=== PATIENT | female | born 1975 | race Caucasian/White ===

== ENCOUNTER 2022-06-02 10:07 | Emergency (ER) | payer OTHER, SELFPAY ==
--- NOTE | 2022-06-02 10:08 | NURSING ---
NO OLD EKGS
[2022-06-02 10:09] VITALS: BP 158/93; PULSE 88; RESP 16; TEMP 35.7; O2SAT 100; BMI 28.8
--- NOTE | 2022-06-02 10:20 | EKG12_ITS ---
Test Reason : CP Blood Pressure : / mmHG Vent. Rate : 073 BPM Atrial Rate : 073 BPM P-R Int : 150 ms QRS Dur : 088 ms QT Int : 396 ms P-R-T Axes : 067 064 059 degrees QTc Int : 436 ms Normal sinus rhythm with sinus arrhythmia Normal ECG Confirmed by JULIEN AG, EMILIANO ([id number]), clinical editor ORTIZ ALFONSO ([id number]) on 06/05/2022 7:54:32 AM Referred By: JARROD/TABITHA Confirmed By:EMILIANO VICTORIA MD
--- NOTE | 2022-06-02 10:21 | EX.ED.DYSGE1 ---
HPI History of Present Illness Chief Complaint: Palpitations Informant: patient Onset/Context/Timing Onset: Yesterday Timing: Intermittent Current Severity: Mild Maximum Severity: Severe Narrative Narrative: Patient presents with intermittent episodes of palpitations. She states last evening she was sitting on the couch with a family member talking when she developed sudden onset of heart racing and shortness of breath. She reports having numbness and tingling in both of her arms. Symptoms resolved after approximately 20 minutes. She woke up early this morning with a similar episode. She states this morning she does not feel quite right but not able to put her finger on it. She does have a history of hypothyroidism and states as of mid April her numbers were appropriate. [facility] Medical History Hypothyroid Kidney calculi Home Medications levothyroxine 175 mcg capsule 175 mcg PO DAILY #30 caps 06/02/22 [Rx Last Taken Unknown] Allergy/AdvReac Type Severity Reaction Status Date / Time tamsulosin [From Flomax] AdvReac PT UNSURE Verified 06/02/22 10:08 OF REACTION Social History Smoking Status: Current every day smoker tobacco type: cigarettes ROS ROS ED Constitutional Constitutional ED: Denies chills or fever(s) Eyes Eyes: Denies change in vision or discharge from eye(s) ENT ENT ED: Denies discharge from eye(s), rhinorrhea or sore throat Cardiovascular Cardiovascular: Reports chest pain, palpitations and racing heartbeat Respiratory/Chest Respiratory/Chest: Reports dyspnea; Denies cough Gastrointestinal Gastrointestinal: Reports nausea; Denies abdominal pain, diarrhea or vomiting Genitourinary Genitourinary ED: Denies difficulty urinating or dysuria Musculoskeletal Musculoskeletal: Denies back pain or extremity pain Integumentary Denies Abrasions or rash Neurologic Neurologic: Reports paresthesias; Denies headache(s) or weakness Psychiatric Psychiatric: Denies anxiety or depression Endocrine Endocrinology: Denies polydipsia or polyuria Allergic/Immunologic Allergic/Immunologic ED: Denies lip swelling or urticaria EXAM Physical Exam Const Vital Signs: 06/02/22 10:09 06/02/22 10:11 Temperature 96.2 F L Temperature Source Temporal Pulse Rate 88 Respiratory Rate 16 Respiratory Effort Normal Non-Labored Blood Pressure 158/93 H Blood Pressure Mean 114 Pulse Ox 100 Oxygen Delivery Method Room Air Positive well nourished and well developed General Appearance ED: well developed HEENT Reports normocephalic and head/scalp atraumatic Eyes PERRL and EOMs intact bilaterally Neck supple Chest Wall inspection of chest normal and palpation of chest normal Resp normal respiratory effort and clear to auscultation bilaterally Cardio regular rate and regular rhythm GI normal to inspection, nondistended, normoactive bowel sounds Palpation: soft Back/Spine no CVA tenderness Extremity normal to inspection Neuro oriented x3 and no sensory deficits noted Sensorium / Orientation: alert Motor Exam: strength 5/5 throughout Psych mental status grossly normal Skin no rashes or lesions noted MDM MDM MDM Narrative Medical decision making narrative: Chest x-ray and EKG obtained. Lab work ordered and patient given a liter of IV fluids. Lab Data Attestation: I reviewed the patient's lab results. Labs: Laboratory Results - last 24 hr 06/02/22 06/02/22 06/02/22 10:20 10:20 10:20 WBC 10.5 RBC 5.23 Hgb 15.4 H Hct 46.1 MCV 88.1 MCH 29.4 MCHC 33.4 RDW Std Deviation 42.2 RDW Coeff of Michele 13.0 Plt Count 284 MPV 11.0 Immature Gran % (Auto) 0.300 Neut % (Auto) 60.7 Lymph % (Auto) 29.9 [place] % (Auto) 6.5 Eos % (Auto) 1.7 Baso % (Auto) 0.9 Absolute Neuts (auto) 6.4 Absolute Lymphs (auto) 3.15 Nucleated RBC % 0 D-Dimer Quant (PE/DVT) 0.40 Sodium 139 Potassium 3.7 Chloride 108 H Carbon Dioxide 22.0 Anion Gap 9 BUN 9 Creatinine 0.99 Estim Creat Clear Calc 59.99 Est GFR (MDRD) Af Amer 78 Est GFR (MDRD) Non-Af 64 BUN/Creatinine Ratio 9.1 L Glucose 87 Calcium 9.6 Total Bilirubin 0.70 Direct Bilirubin 0.19 AST 13 L ALT 16 Alkaline Phosphatase 75 Troponin I High Sens 4 Total Protein 8.1 Albumin 4.1 Globulin 4.0 TSH 14.20 H Radiography Chest X-Ray - ED: 1 View, Read by ED Physician, Normal, Heart, Lungs and Mediastinum Diagnostic Testing: Clinical Impression(s) from Imaging Studies Chest X-Ray 06/02/22 10:25 IMPRESSION: Normal x-ray examination of the chest. Electronically Signed: Tammy Barbosa MD at 10:38 EDT , EKG Initial EKG: Attestation: I personally reviewed and interpreted this EKG as follows: Interpretation: Sinus Rhythm (Sinus at 73 with no acute ischemia.) Treatment and Re-Evaluation Narrative: Repeat evaluation patient resting comfortably. Heart rate in the 60s. Lab work is reviewed. CBC reveals mildly concentrated hemoglobin of 15.4. Chemistry studies unremarkable. D-dimer is normal at 0.4 and troponin is normal at 4. Her TSH is elevated at 14.2. It appears that the patient is currently on 125 mcg of Synthroid. In January she was on 175, tapered to 150 in February, and tapered to 125 in March. I spoke with the patient's primary care physician, Dr. Aviles. Patient will go back up to 175 and I will write her a new prescription for that. She is to follow-up in 1 month for repeat labs. Discharge Plan Triage Chief Complaint: Palpitations ED Provider: Ana Muñoz Dx/Rx/DC Orders Clinical Impression: Palpitations, Hypothyroidism Instructions: Treating Thyroid Problems, ED Palpitations Prescriptions: New levothyroxine 175 mcg capsule 175 mcg PO DAILY Qty: 30 0RF Primary Care Provider: Hakeem Aviles Referrals: Hakeem Aviles MD [Primary Care Provider] - 1-2 Weeks Activity Restrictions/Additional Instructions: Follow-up with Dr. Aviles in 1 month for repeat thyroid testing. If you continue to have intermittent palpitations you need to be seen for reevaluation prior to this. Disposition Disposition: Home, Self Care
--- NOTE | 2022-06-02 10:25 | RAD_ITS ---
STUDY: X-RAY CHEST REASON FOR EXAM: Female, 46 years old. Cp TECHNIQUE: Single AP portable view of the chest. COMPARISON: None. FINDINGS: The lungs are clear and expanded. There is no demonstrated pleural abnormality. Normal size heart. Normal mediastinum and rachel. Normal visualized pulmonary arteries. Normal visualized aortic arch and descending thoracic aorta. Normal visualized thoracic spine. Normal visualized ribs, clavicles, and shoulders. There is no demonstrated abnormality of the visualized soft tissue structures of the upper abdomen. RAD/Chest 1 View (Portable) IMPRESSION: Normal x-ray examination of the chest. Electronically Signed: Tammy Barbosa MD at 10:38 EDT Reading Location ID and State: [facility] / [place] Tel , Service support ,
[2022-06-02 10:32] LABS: Absolute Lymphocyte Count 3.15 X10^3/uL (0.83-4.51); Absolute Neutrophil Count 6.4 X10^3/uL (2.0-7.7); Basophil# 0.09 X10^3/uL; Basophil% 0.9 % (0-1); Eosinophil# 0.18 X10^3/uL; Eosinophils% 1.7 % (0-5); Hematocrit 46.1 % (37-47); Hemoglobin 15.4 g/dL (12.0-15.0); Lymphocyte # 3.15 X10^3/ul (0.83-4.51); Lymphocyte % 29.9 % (19-41); Mean Corp Hgb Conc 33.4 g/dL (32-36); Mean Corpuscular Hgb 29.4 pg (27.0-32.0); Mean Corpuscular Volume 88.1 fL (81-99); Monocyte# 0.68 X10^3/uL; Monocyte% 6.5 % (0-10); NRBC Flagged by Analyzer 0 % (0-5); Neutrophil % 60.7 % (47-70); Platelet Count 284 K/mm3 (150-450); RBC Distribution Width SD 42.2 fl (35.1-43.9); Red Blood Count 5.23 M/mm3 (4.2-5.4); White Blood Count 10.5 K/mm3 (4.4-11.0)
[2022-06-02] MEDS: 0.9% Normal Saline 1,000 ML 1000 ML IV (10:44)
[2022-06-02 10:56] LABS: AST(SGOT) 13 U/L (15-37); Alanine Aminotransfer ALT/SGPT 16 U/L (13-56); Albumin, Serum 4.1 g/dL (3.2-5.0); Alkaline Phosphatase 75 U/L (45-117); Anion Gap 9 (5-15); BUN 9 mg/dL (7-18); BUN/Creat Ratio 9.1 RATIO (10-20); Bilirubin, Direct 0.19 mg/dL (0.00-0.30); Calcium,Total 9.6 mg/dL (8.5-10.1); Chloride 108 mmol/L (98-107); Creatinine, Serum 0.99 mg/dL (0.55-1.02); EST Glomerular Filtration Rate 64 mL/min (>60); Est Glom Filt Rate - Afr Amer 78 mL/min (>60); Estimated Creatinine Clearance 59.99 ml/min; Glucose 87 mg/dL (74-106); Potassium 3.7 mmol/L (3.5-5.1); Protein, Total 8.1 g/dL (6.4-8.2); Sodium Level 139 mmol/L (136-145); Troponin-I HS (w/2H Reflex) 4 pg/mL (3.0-54.0)
[2022-06-02 11:22] VITALS: BP 128/94; PULSE 87; RESP 14; TEMP 37.1; O2SAT 99
[2022-06-02 12:28] LABS: Reflex Troponin-HS? (from REC) Y
== END 2022-06-02 11:23 | disposition home or self-care (01) ==
PROVIDERS: Emergency Provider Emergency Medicine; PCP Family Medicine; Visit Provider Emergency Medicine
DX: R00.2 Palpitations (principal); E03.9 Hypothyroidism, unspecified; R06.02 Shortness of breath; F17.210 Nicotine dependence, cigarettes, uncomplicated; Z79.890 Hormone replacement therapy
CPT/HCPCS: 71045; 80048; 80076; 84443; 84484; 85025; 85379; 93005; 96360; 99284; J7030

== ENCOUNTER → 2022-07-20 | Outpatient (CLI) | payer OTHER, SELFPAY ==
--- NOTE | 2022-07-20 12:12 | US_ITS ---
STUDY: THYROID ULTRASOUND REASON FOR EXAM: Female, 46 years old. HYPOTHYROID TECHNIQUE: Ultrasound evaluation of the thyroid was performed with real-time and static ellsworth-scale imaging. COMPARISON: None. FINDINGS: RIGHT LOBE: The right lobe of the thyroid gland measures 4.4 x 1.1 x 1.0 cm. There is a heterogeneous echotexture. 2 separate solid nodules identified. Larger measures 1.1 x 0.7 x 0.7 cm. This nodule is solid or almost completely solid, hypoechoic, cfarhk-bdsq-coen, smoothly marginated and contains no echogenic foci. TI-RADS points: 7. TI-RADS category: TR5. This nodule is highly suspicious. Recommend follow-up thyroid ultrasounds annually for 5 years. Smaller 0.5 x 0.4 x 0.3 cm. LEFT LOBE: The left lobe of the thyroid gland measures 3.8 x 1.1 x 0.7 cm. There is a heterogeneous echotexture. There is a solid 0.2 x 0.2 x 0.1 cm hypoechoic nodule ISTHMUS: The isthmus measures 2 mm. The regional lymph nodes are normal. US/Thyroid IMPRESSION: Heterogeneous thyroid gland with bilateral solid nodules. Largest nodule in is the right lobe measures 1.1 x 0.7 x 0.7 cm. Follow-up as described above. Electronically Signed: Huy Pearson MD at 9:23 EDT ,
== END | disposition home or self-care (01) ==
PROVIDERS: PCP Family Medicine; Visit Provider Internal Medicine Endocrinology, Diabetes & Metabolism
DX: E04.0 Nontoxic diffuse goiter (principal); E03.9 Hypothyroidism, unspecified; E55.9 Vitamin D deficiency, unspecified
CPT/HCPCS: 76536

== ENCOUNTER 2023-05-16 13:06 | Emergency (ER) | payer OTHER, SELFPAY ==
[2023-05-16 13:07] VITALS: BP 144/85; PULSE 67; RESP 14; TEMP 36.2; O2SAT 100; BMI 29.5
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
[2023-05-16 13:49] LABS: Absolute Lymphocyte Count 3.31 X10^3/uL (0.83-4.51); Absolute Neutrophil Count 4.4 X10^3/uL (2.0-7.7); Basophil# 0.07 X10^3/uL; Basophil% 0.8 % (0-1); Eosinophil# 0.13 X10^3/uL; Eosinophils% 1.5 % (0-5); Hematocrit 41.6 % (37-47); Hemoglobin 13.8 g/dL (12.0-15.0); Lymphocyte # 3.31 X10^3/ul (0.83-4.51); Lymphocyte % 38.6 % (19-41); Mean Corp Hgb Conc 33.2 g/dL (32-36); Mean Corpuscular Hgb 29.2 pg (27.0-32.0); Mean Corpuscular Volume 88.1 fL (81-99); Mean Platelet Vol. 9.9 fl (6.2-12.0); Monocyte# 0.61 X10^3/uL; Monocyte% 7.1 % (0-10); NRBC Flagged by Analyzer 0 % (0-5); Neutrophil # 4.44 X10^3/uL (2.7-7.7); Neutrophil % 51.8 % (47-70); Platelet Count 294 K/mm3 (150-450); RBC Distribution Width CV 12.3 % (11.6-14.6); Red Blood Count 4.72 M/mm3 (4.2-5.4); White Blood Count 8.6 K/mm3 (4.4-11.0)
--- NOTE | 2023-05-16 13:50 | RAD_ITS ---
STUDY: X-RAY CHEST REASON FOR EXAM: Female, 47 years old. Chest pain TECHNIQUE: PA and lateral views of the chest. COMPARISON: Comparison is made with prior study June 02, 2022. FINDINGS: EKG electrodes are seen. Hyperinflation. The lungs are clear. There is no demonstrated pleural abnormality. Normal size heart. Normal mediastinum and rachel. Normal visualized pulmonary arteries. Normal visualized aortic arch and descending thoracic aorta. Normal visualized thoracic spine. Normal visualized ribs, clavicles, and shoulders. There is no demonstrated abnormality of the visualized soft tissue structures of the upper abdomen. RAD/Chest PA and Lateral IMPRESSION: Hyperinflation. The lungs are clear. Electronically Signed: Rio Castellon MD at 14:05 EDT ,
[2023-05-16 14:10] LABS: Anion Gap 9 (5-15); BUN 15 mg/dL (7-18); BUN/Creat Ratio 13.4 RATIO (10-20); Calcium,Total 9.2 mg/dL (8.5-10.1); Chloride 108 mmol/L (98-107); Creatinine, Serum 1.12 mg/dL (0.55-1.02); EST Glomerular Filtration Rate 56 mL/min (>60); Est Glom Filt Rate - Afr Amer 67 mL/min (>60); Estimated Creatinine Clearance 52.47 ml/min; Free T3 1.8 pg/mL (2.18-3.98); Glucose 83 mg/dL (74-106); Sodium Level 139 mmol/L (136-145); T4 Free Direct 1.18 ng/dL (0.76-1.46); Troponin-I HS 4 pg/mL (3.0-54.0)
[2023-05-16 15:38] VITALS: BP 136/78; PULSE 78; RESP 14; O2SAT 98
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
== END 2023-05-16 15:54 | disposition home or self-care (01) ==
PROVIDERS: Emergency Provider Emergency Medicine; PCP Family Medicine; Visit Provider Emergency Medicine
DX: E03.9 Hypothyroidism, unspecified (principal); R07.9 Chest pain, unspecified; R00.2 Palpitations; R06.02 Shortness of breath; M54.2 Cervicalgia; R51.9 Headache, unspecified; F17.210 Nicotine dependence, cigarettes, uncomplicated; Z79.890 Hormone replacement therapy
CPT/HCPCS: 71046; 80048; 84439; 84443; 84481; 84484; 85025; 93005; 99284

== ENCOUNTER 2023-07-02 11:38 | Emergency (ER) | payer OTHER, SELFPAY ==
[2023-07-02 11:40] VITALS: BP 146/84; PULSE 75; RESP 18; TEMP 36.1; O2SAT 100; BMI 28.7
--- NOTE | 2023-07-02 12:24 | CT_ITS ---
STUDY: CT SOFT TISSUE NECK WITH CONTRAST REASON FOR EXAM: Female, 47 years old. Swelling of the throat.. Patient is on prednisone. RADIATION DOSAGE (If Supplied By Facility): CTDIvol = ( 12.18 ) mGy, DLP = ( 380.41 ) mGycm TECHNIQUE: The patient was scanned in a multi-detector CT scanner. High resolution transaxial imaging was performed following intravenous administration of IV 100mL Isovue-300. Sagittal and coronal images were reconstructed. Individualized dose optimization techniques were used for this CT. COMPARISON: None. FINDINGS: Slightly limited study due to patient motion artifact. Normal bilateral parotid glands. Normal bilateral conductor/engineer spaces. Normal bilateral parapharyngeal spaces. Normal bilateral carotid spaces. Normal bilateral sublingual and submandibular glands and spaces. Normal visualized nasopharynx. Normal retropharyngeal space. Normal perivertebral space. Normal visualized bilateral faucial tonsils. The visualized tongue, tongue base and oropharynx are normal. The visualized cervical lymph nodes (levels I-) are within normal size limits, and maintain normal morphology. There is no demonstrated solid or cystic mass lesion. There is no abnormal contrast enhancement. Normal epiglottis, bilateral vallecula and hypopharynx. The pre-epiglottic and paraglottic adipose spaces are normal. Normal visualized bilateral piriform sinuses, aryepiglottic folds, vocal cords, and arytenoid-cricoid articulations. Normal subglottic trachea. Normal bilateral lobes of the thyroid gland. Normal visualized pulmonary apices. There is opacification of the left maxillary sinus. Normal visualized cervical spine. CT/Soft Tissue Neck WITH Contrast IMPRESSION: Opacification of the left maxillary sinus. Electronically Signed: Rio Castellon MD at 14:33 EDT ,
--- NOTE | 2023-07-02 12:27 | EX.ED.DYSGE1 ---
HPI <MERVIN Bryan - Last Filed: 07/02/23 15:15> History of Present Illness Chief Complaint: Sore Throat Narrative Narrative: Patient is a 47-year-old female with history of thyroid issues who is currently under the care of an physician general practice. Patient over the last several days has been having swelling to her lower part of her neck, she is having difficulty talking, she is having difficulty swallowing and she is here for evaluation. She did get seen by an emergency department 2 days ago, they did a chest x-ray, EKG and then discharged her. Patient does have an appointment on which is in 2 days. She is here because she thinks the swelling is getting worse and she is having difficulty breathing at nighttime. She does have history of thyroid nodules, and she is currently talking to her physician general practice about thyroidectomy. She has no history of cancer that she knows of. PFSH <MERVIN Bryan - Last Filed: 07/02/23 15:15> PFSH Medical History Hypothyroid Kidney calculi Home Medications levothyroxine 175 mcg capsule 100 mcg PO DAILY 05/16/23 [History Last Taken Unknown] Allergy/AdvReac Type Severity Reaction Status Date / Time bee venom protein (honey bee) Allergy Severe Anaphylaxis Verified 07/02/23 11:40 shellfish derived AdvReac Intermediate Vomiting Verified 07/02/23 11:40 tamsulosin [From Flomax] AdvReac PT UNSURE Verified 07/02/23 11:40 OF REACTION Social History Smoking Status: Current every day smoker tobacco type: cigarettes ROS <MERVIN Bryan - Last Filed: 07/02/23 15:15> ROS ED ROS Narrative Constitutional: Negative for fever, chills, weight loss, weakness Eyes: Negative for vision loss, vision change, double vision ENT: Negative for any ear pain, congestion. Positive for sore throat, difficulty swallowing, Cardiovascular: Negative for any chest pain, tightness, palpitations Respiratory: Negative for any cough, sputum production, hemoptysis, dyspnea on exertion, orthopnea. Positive for dyspnea secondary to throat swelling Gastrointestinal: Negative for any abdominal pain, nausea, vomiting, diarrhea, constipation, blood in stool, blood in vomit : Negative for any urinary frequency, dysuria, retention, blood in urine Muscle skeletal: Negative for any muscle joint pain, stiffness, myalgias, arthralgias, neck pain, back pain Neurological: Negative for any headache, syncope, numbness or tingling, dizziness Skin: Negative for any rashes, lumps, itching, abrasions, lacerations Psychiatric: Negative for any depression, anxiety, stress, suicidal ideation, homicidal ideation Hematologic: Negative for any easy bruising, excessive bruising, easy bleeding Allergies: Negative for any eczema, hives, rash EXAM <MERVIN Bryan - Last Filed: 07/02/23 15:15> Physical Exam Narrative Exam Narrative: Vital signs reviewed. Patient is in no obvious distress. Patient is to be complete sentences, patient has no stridor, patient's vital signs are stable. Patient does state that her voice is strained secondary to the pressure in her throat. HEET: Head normocephalic atraumatic, TMs clear bilaterally. Posterior pharynx is clear, moist mucous membranes. Nares clear bilaterally. Neck: Supple with no lymphadenopathy or tenderness. No signs of meningismus,. I was able to palpate the thyroid, when doing so, she states that this does cause significant pressure. I did not feel any nodules on my exam. Cardiac: Regular rate and rhythm no murmurs gallops or rubs, equal peripheral pulses bilaterally. Respiratory: Lungs clear to auscultation bilaterally. No chest tenderness. Abdomen: Soft, nontender, nondistended. No abdominal bruit or pulsatile masses. No hepatosplenomegaly Extremities: No peripheral edema, no signs of gross trauma or deformity. Active full range of motion of all extremities. Neuro: Cranial nerves II through XII intact, no focal neurological deficits. Skin: Clean dry and intact with no rash, purpura, petechiae, vesicles or pustules. Backs/flank: No CVA tenderness, no midline spinal tenderness, no deformity. Psych: Normal mood and affect. No SI, HI or acute psychosis. Const Vital Signs: 07/02/23 11:40 Temperature 97 F L Temperature Source Temporal Pulse Rate 75 Respiratory Rate 18 Blood Pressure 146/84 H Blood Pressure Mean 104 Pulse Ox 100 Oxygen Delivery Method Room Air Positive well nourished and well developed General Appearance ED: well developed <Dr. Efren Mckay, DO - Last Filed: 07/02/23 15:42> Physical Exam Const Vital Signs: 07/02/23 11:40 Temperature 97 F L Temperature Source Temporal Pulse Rate 75 Respiratory Rate 18 Blood Pressure 146/84 H Blood Pressure Mean 104 Pulse Ox 100 Oxygen Delivery Method Room Air MDM <Ren Ruizvalentina B[employer]WER-C - Last Filed: 07/02/23 15:15> MDM Lab Data Labs: Laboratory Results - last 24 hr 07/02/23 13:15 WBC 15.2 H RBC 4.59 Hgb 13.7 Hct 41.8 MCV 91.1 MCH 29.8 MCHC 32.8 RDW Std Deviation 41.8 RDW Coeff of Michele 12.5 Plt Count 271 MPV 10.3 Immature Gran % (Auto) 0.300 Neut % (Auto) 89.9 H Lymph % (Auto) 7.5 L Davison % (Auto) 2.0 Eos % (Auto) 0.0 Baso % (Auto) 0.3 Absolute Neuts (auto) 13.7 H Absolute Lymphs (auto) 1.14 Nucleated RBC % 0 Sodium 140 Potassium 4.1 Chloride 110 H Carbon Dioxide 24.0 Anion Gap 6 BUN 13 Creatinine 0.77 Estim Creat Clear Calc 76.32 Est GFR (MDRD) Af Amer 104 Est GFR (MDRD) Non-Af 86 BUN/Creatinine Ratio 16.9 Glucose 108 H Calcium 9.2 Radiography Diagnostic Testing: Clinical Impression(s) from Imaging Studies Soft Tissue Neck CT 07/02/23 12:24 IMPRESSION: Opacification of the left maxillary sinus. Electronically Signed: Rio Castellon MD at 14:33 EDT , Treatment and Re-Evaluation :: Patient is in no obvious distress, vital signs are stable. Patient appears nontoxic, patient is here for evaluation of her thyroid. Patient states that she feels like her thyroid is swelling, and is pushing on her throat causing her to have difficulty swallowing, breathing. She does have an appointment in 2 days. Patient will receive basic laboratory values, as well as a CT scan of the soft tissue neck. This will be concerning any obstructing pathology. This will also look for any tumors, size of the thyroid. Patient is in no distress, vital signs are stable. I did look at the patient's iPhone which had her past blood work, patient CBC was unremarkable, BMP was unremarkable, patient's thyroid was 0.67 which is normal. Patient's laboratory values showed elevated white blood count of 15.2, this is likely secondary to steroids. Patient's chemistries were unremarkable. Patient CT scan of the soft tissue neck concerning for any edema, abscess formation, swelling shows opacification of the left maxillary sinus. Normal bilateral lobes of the thyroid gland. Normal visualized pulmonary opacities. I spoke with the patient, she does feel similar however she is happy with the plan of care and going home and getting follow-up with her physician general practice. Again patient is in no distress, patient is stable for discharge. Patient instructed to return for any worsening symptoms, patient verbally understands the importance of following up with her physician general practice in 2 days. <Dr. Efren Mckay, DO - Last Filed: 07/02/23 15:42> [facility] Narrative Medical decision making narrative: I have personally performed a face to face assessment of the patient and have reviewed the JUAN CARLOS Note. I performed a substantive portion of the visit including all aspects of the following. My rapp findings include: History: Presents with sore throat and neck pain that has been getting worse over the past 3 days. Patient states her pain is over her thyroid gland area. Patient states she started herself on prednisone recently. Patient admits to a mild headache. Patient states her pain is worse with swallowing. Patient denies any shortness of breath. Patient denies any fevers or chills. Exam: Vital signs are stable. Patient is afebrile. Patient is in no acute distress. Oral mucosa is pink and moist. Oropharynx is clear. Airway is patent. There is no trismus noted. Neck is supple. Trachea is midline. There is no JVD. There is no anterior cervical lymphadenopathy noted. There are some mild tenderness anteriorly in the neck. There is no edema. There is no sublingual edema or erythema. There is no evidence of Richy's angina. Heart was regular rate and rhythm. Lungs are clear and equal bilaterally. Abdomen is soft and nontender. Cranial nerves II through XII are intact. There are no focal motor or sensory deficits noted. Medical Decision Making: Differential diagnosis includes parapharyngeal abscess, pharyngitis, epiglottitis, and tracheitis. CBC will be obtained to assess for leukocytosis and anemia. Basic metabolic profile will be obtained to assess for renal function and electrolyte abnormality. CT scan of the soft tissue neck will be obtained to assess for abscess, epiglottitis, and tracheitis. CBC was reviewed. There is a mild leukocytosis of 15.2. Platelets were normal. Basic metabolic profile was reviewed and was within normal limits. CT scan of the soft tissue neck was obtained. There is opacification of the left maxillary sinus. There is no pharyngeal abscess, epiglottitis, or tracheitis noted. This was interpreted by the radiologist and was also independently reviewed by myself. Patient was advised of her findings. Patient was instructed to follow-up with her primary care physician in 5 to 7 days. Patient understood and was agreeable with the plan. All questions were answered. Lab Data Labs: Laboratory Results - last 24 hr 07/02/23 13:15 WBC 15.2 H RBC 4.59 Hgb 13.7 Hct 41.8 MCV 91.1 MCH 29.8 MCHC 32.8 RDW Std Deviation 41.8 RDW Coeff of Michele 12.5 Plt Count 271 MPV 10.3 Immature Gran % (Auto) 0.300 Neut % (Auto) 89.9 H Lymph % (Auto) 7.5 L Davison % (Auto) 2.0 Eos % (Auto) 0.0 Baso % (Auto) 0.3 Absolute Neuts (auto) 13.7 H Absolute Lymphs (auto) 1.14 Nucleated RBC % 0 Sodium 140 Potassium 4.1 Chloride 110 H Carbon Dioxide 24.0 Anion Gap 6 BUN 13 Creatinine 0.77 Estim Creat Clear Calc 76.32 Est GFR (MDRD) Af Amer 104 Est GFR (MDRD) Non-Af 86 BUN/Creatinine Ratio 16.9 Glucose 108 H Calcium 9.2 Radiography Diagnostic Testing: Clinical Impression(s) from Imaging Studies Soft Tissue Neck CT 07/02/23 12:24 IMPRESSION: Opacification of the left maxillary sinus. Electronically Signed: Rio Castellon MD at 14:33 EDT , Discharge Plan Triage Chief Complaint: Sore Throat ED Midlevel Provider: Ren Ambriz ED Provider: Efren Mckay Dx/Rx/DC Orders Clinical Impression: Pain in throat, Hypothyroidism Prescriptions: No Action levothyroxine 175 mcg capsule 100 mcg PO DAILY Primary Care Provider: Hakeem Aviles Referrals: Hakeem Aviles MD [Primary Care Provider] - Activity Restrictions/Additional Instructions: Please follow-up with your physician general practice. Disposition Disposition: Home, Self Care Discharge Date/Time: 07/02/23 15:31
[2023-07-02] MEDS: 0.9% Normal Saline (1000mL) 1,000 ML 1000 ML IV (13:13)
[2023-07-02] MEDS: Ketorolac 15 MG/ML Vial IV (13:14)
[2023-07-02 13:22] LABS: Absolute Lymphocyte Count 1.14 X10^3/uL (0.83-4.51); Absolute Neutrophil Count 13.7 X10^3/uL (2.0-7.7); Basophil# 0.05 X10^3/uL; Basophil% 0.3 % (0-1); Hematocrit 41.8 % (37-47); Hemoglobin 13.7 g/dL (12.0-15.0); Lymphocyte # 1.14 X10^3/ul (0.83-4.51); Lymphocyte % 7.5 % (19-41); Mean Corp Hgb Conc 32.8 g/dL (32-36); Mean Corpuscular Hgb 29.8 pg (27.0-32.0); Mean Corpuscular Volume 91.1 fL (81-99); Mean Platelet Vol. 10.3 fl (6.2-12.0); NRBC Flagged by Analyzer 0 % (0-5); Neutrophil # 13.69 X10^3/uL (2.7-7.7); Neutrophil % 89.9 % (47-70); Platelet Count 271 K/mm3 (150-450); RBC Distribution Width CV 12.5 % (11.6-14.6); RBC Distribution Width SD 41.8 fl (35.1-43.9); Red Blood Count 4.59 M/mm3 (4.2-5.4); White Blood Count 15.2 K/mm3 (4.4-11.0)
[2023-07-02 13:38] LABS: Anion Gap 6 (5-15); BUN 13 mg/dL (7-18); BUN/Creat Ratio 16.9 RATIO (10-20); Calcium,Total 9.2 mg/dL (8.5-10.1); Chloride 110 mmol/L (98-107); Creatinine, Serum 0.77 mg/dL (0.55-1.02); EST Glomerular Filtration Rate 86 mL/min (>60); Est Glom Filt Rate - Afr Amer 104 mL/min (>60); Estimated Creatinine Clearance 76.32 ml/min; Glucose 108 mg/dL (74-106); Potassium 4.1 mmol/L (3.5-5.1); Sodium Level 140 mmol/L (136-145)
== END 2023-07-02 15:31 | disposition home or self-care (01) ==
PROVIDERS: Nurse Practitioner; Emergency Provider Emergency Medicine; PCP Family Medicine; Visit Provider Emergency Medicine
DX: R07.0 Pain in throat (principal); E03.9 Hypothyroidism, unspecified; R06.00 Dyspnea, unspecified; R22.1 Localized swelling, mass and lump, neck; R51.9 Headache, unspecified; F17.210 Nicotine dependence, cigarettes, uncomplicated; Z79.890 Hormone replacement therapy
CPT/HCPCS: 70491; 80048; 85025; 96361; 96374; 99283; J7030; Q9967; A4216